=== PATIENT | male | born 1960 | race Caucasian/White ===

== ENCOUNTER 2016-03-25 10:27 | Emergency (ER) | payer BC ==
[~2016-03-25] VITALS: Ht 190.5 cm; Wt 170.0 kg
[2016-03-25 11:04] VITALS: BP 126/69
[2016-03-25 12:01] LABS: INFLUENZA A VIRAL ANTIGEN POSITIVE; INFLUENZA B VIRAL ANTIGEN NEGATIVE
[2016-03-25] MEDS ORDERED: NAPROXEN500 MG PO (12:13)
== END 2016-03-25 13:01 | disposition home or self-care (01) ==
LOC: EME 10:27
DX: J09.X2 Influenza due to identified novel influenza A virus with other respiratory manifestations (principal)
CPT/HCPCS: 87502; 87651 90; 99281; 99283